=== PATIENT | male | born 1945 | race Caucasian/White ===

== ENCOUNTER 2017-07-07 04:24 | Inpatient (IN) | payer OTHER ==
[~2017-07-07] VITALS: Ht 177.8 cm; Wt 81.6 kg
--- NOTE | ~2017-07-07 | EC ---
PATIENT:NIYAH TIPTON DATE OF SERVICE: 07/07/17 SEX: M MEDICAL RECORD: [id number] DATE OF : 45 LOCATION:[facility] AGE OF PATIENT: 72 ADMISSION DATE: 07/07/17 REFERRING PHYSICIAN: INTERPRETING PHYSICIAN: KALE BOYD MD ECHOCARDIOGRAM REPORT ECHO CHARGES 4 ECHO COMPLETE CLINICAL DIAGNOSIS: AFIB ECHOCARDIOGRAPHIC MEASUREMENTS (adult normal given) AC root (d.<3.7cm) 5.0 cm LV Septum d (<1.2 cm> 1.9 cm Valve Excursion 2.5 cm LV Septum (systole) 2.0 cm Left Atria (s.<4.0cm> 3.5 cm LVPW d(<1.2cm) 2.0 cm RV (d.<2.3cm) 5.6 cm LVPW (sytole) 2.2 cm LV diastole(<5.6CM) 5.8 cm MV E-F(>70mm/sec) cm LV systole 4.0 cm LVOT Diameter 2.2 cm MV exc.(>10mm) 1.0 cm Est.ejection fraction (50-75%) % Pericardial Effusion N DOPPLER: LVIT cm/sec A 75.0 cm/sec E 34.0 cm/sec LA cm/sec RVSP 25 mmHg LVOT 111 cm/sec AOP1/2T 408 m/s Asc. Ao 176 cm/sec RVOT cm/sec RA cm/sec PA cm/sec AV Gradient Peak 12.37mmHg AV Mean 6.20 mmHg AV Area 2.3 cm MV Gradient Peak 5.36 mmHg MV Mean 2.36 mmHg MV Area cm COMMENTS: Precast Molder: Mary Ellen SANDERS Real Estate Broker Associate: 1 Dr. Boyd TAPE# PACA DATE OF SERVICE: 07/09/2017 PROCEDURE: Echocardiogram. FINDINGS: 1. Left ventricular chamber size is within normal limits. Left ventricular systolic function is normal. Overall ejection fraction estimated at 55%. 2. Left atrium is within normal limits at 3.5 cm. Right atrium and right ventricle chamber sizes are moderately dilated. 3. Valvular structures have normal structure and motion. ECHOCARDIOGRAM REPORT [id number] NIYAH TIPTON 4. Doppler interrogation reveals mild aortic insufficiency, mild mitral regurgitation, mild tricuspid regurgitation, no other valvular insufficiency or stenosis. Pulmonary systolic pressure is normal estimated at 25 mmHg. 5. No evidence of pericardial effusion or left ventricular thrombus. TRANSINT:[id number] Voice Confirmation ID: [id number] DOCUMENT ID: [id number] KALE BOYD MD at 1323 CC: [id number] DICTATION DATE: 07/09/17 1250 CORRECTIONAL PROGRAM OFFICER: 07/09/17 1426 DIS IN 07/12/17 [place] [id number] [place] [id number]
--- NOTE | ~2017-07-07 | CN ---
PATIENT NAME:NIYAH TIPTON MEDICAL RECORD: [id number] : 45 LOCATION:[id number] ADMIT DATE: 07/07/17 ACCOUNT: [id number] CONSULTING PHYSICIAN: KALE BENSON MD REFERRING PHYSICIAN: ALEXANDRE BARBA MD DATE OF CONSULTATION: 07/09/2017 CARDIOLOGY CONSULT ADMITTING DIAGNOSES: 1. Paroxysmal atrial fibrillation. 2. Abdominal aortic aneurysm. 3. Chronic obstructive pulmonary disease. 4. Gastrointestinal bleed. 5. Hypertension. 6. Shortness of breath -- dyspnea on exertion. HISTORY OF PRESENT ILLNESS: This is a gentleman who has a history of atrial fibrillation, for which he is on nothing, was admitted with a GI bleed, COPD exacerbation, had an episode of atrial fibrillation with heart rates in the 160s. He is now in sinus rhythm at 90. For blood pressure, he is on lisinopril. PHYSICAL EXAMINATION: GENERAL APPEARANCE: Well-nourished, well-developed, appears stated age. Level of distress, comfortable. PSYCHIATRIC: Mental status, alert, normal affect. Orientation, oriented to time, place and person. EYES: Lids and conjunctiva, noninjected. No discharge, no pallor. ENT: Lips, teeth, gums, normal dentition. Oropharynx, no cyanosis, no pallor. NECK: Carotid arteries, bilateral normal upstroke, no bruits, no thrills. JUGULAR VEINS: No jugular venous pressure or distention. CERVICAL LYMPH NODES: Nontender, nonenlarged. THYROID: Not enlarged. Nontender. No nodules. LUNGS: Respiratory effort, unlabored. CHEST: Normal curvature. No thoracic deformity. No chest wall tenderness. Percussion, resonant. Auscultation, clear. No wheezes, no rales, no rhonchi. CARDIOVASCULAR: Precordial exam, nondisplaced. No heaves or pericardial thrills. Rate and rhythm, regular. Heart sounds, normal S1, normal S2. No S3, no gallop, no rub. Systolic murmur, not heard. Diastolic murmur, not heard. EXTREMITIES: No cyanosis, no edema. Peripheral pulses, full and equal in all extremities, except as noted. No bruits appreciated. ABDOMEN: Soft, nondistended. Normal aorta. No bruit. Nontender. No masses. Liver, nontender, no hepatomegaly. Spleen, nontender, no splenomegaly. MUSCULOSKELETAL: No joint tenderness. No joint swelling. No erythema. NEUROLOGICAL: Normal gait, normal strength, normal tone. SKIN: Warm and dry. REVIEW OF SYSTEMS: The patient reports easy bruising but reports no swollen glands. The patient reports no fever, no night sweats, no significant weight gain, no significant weight loss. No significant exercise tolerance. The patient reports no dry eyes, no irritation, no vision change. Patient reports no difficulty hearing and no ear pain. Patient reports no frequent nose bleeds or nose and sinus problems. Patient reports on arm pain on exertion. No shortness of breath while lying down. No history of heart murmur. Patient CONSULT REPORT [id number] NIYHA TIPTON reports no cough, no wheezing or coughing up blood. Patient reports no abdominal pain, no vomiting. Normal appetite. No diarrhea and not vomiting blood. No nausea and no constipation. Patient reports no incontinence. No difficulty urinating. No hematuria. No increased frequency. Patient reports no muscle aches. No weakness, no arthralgias, no back pain. No swelling of the extremities. Patient reports no abnormal mole, no jaundice, no rashes. Reports no loss of consciousness. No weakness and no numbness. No seizures, dizziness, or headaches. The patient reports no depression, no sleep disturbance, feeling safe in a relationship and no alcohol abuse. Patient reports on fatigue. Reports no runny nose or sinus pressure. No itching, no hives, and no frequent sneezing. OVERALL IMPRESSION: Episodes of atrial fibrillation. At this time, we will start sotalol 80 mg b.i.d., restart his lisinopril and amlodipine for blood pressure, hopefully this will avert any further episodes of atrial fibrillation. We will get an echocardiogram. Otherwise, no other cardiac workup or treatment is necessary at this time. TRANSINT:[id number] Voice Confirmation ID: [id number] DOCUMENT ID: [id number] KALE BENSON MD at 1323 CC: [id number] DICTATION DATE: 07/09/17 1129 SUPERVISOR GATE SERVICES: 07/09/17 1316 DIS IN 07/12/17 [place] [address]
[2017-07-07 04:45] LABS: BASOPHILS 0.4 % (0-2); EOSINOPHILS 3.8 % (0-7); HEMATOCRIT 32.1 % (42.0-54.0); HEMOGLOBIN 10.6 g/dL (13.5-17.5); IMMATURE GRANULOCYTES 0.4 % (0-5); LYMPHOCYTES 17.6 % (15-50); MCH 30.7 pg (26.0-34.0); MEAN PLATELET VOLUME 9.1 fL (7.4-10.4); MONOCYTES 10.7 % (2-11); NEUTROPHILS 67.1 % (40-80); PLATELET COUNT 192 10x3/uL (130-400); RBC 3.45 10x6/uL (4.20-6.10); RDW 12.9 % (11.5-14.5); WBC 7.5 10x3/uL (4.8-10.8)
[2017-07-07 05:05] LABS: APTT 34.5 SECONDS (22.8-39.4); INR 0.96 (0.85-1.17); PROTIME 12.4 SECONDS (11.6-15.0)
[2017-07-07 05:08] LABS: ALBUMIN 3.2 g/dL (3.4-5.0); ALKALINE PHOSPHATASE 81 U/L (46-116); ALT (SGPT) 20 U/L (10-68); BILIRUBIN - TOTAL 0.29 mg/dL (0.2-1.3); CALC OSMOLALITY 269 mosm/kg (275-300); CALCIUM 8.5 mg/dL (8.5-10.1); CARBON DIOXIDE 31.2 mmol/L (21.0-32.0); CHLORIDE - SERUM 96 mmol/L (98-107); CREATININE - SERUM 1.1 mg/dL (0.6-1.3); GLUCOSE 112 mg/dL (74-106); POTASSIUM - SERUM 4.3 mmol/L (3.5-5.1); PROTEIN - SERUM 6.1 g/dL (6.4-8.2); SODIUM 133 mmol/L (136-145); UREA NITROGEN 22 mg/dL (7-18); eGFR NON AFRICAN AMERICAN 70 mL/min (90-120)
[2017-07-07 05:20] LABS: CKMB 1.2 U/L (0.0-3.6); CREATINE KINASE 54 UL (21-232); PRO BNP 207 pg/mL (0-125)
[2017-07-07 05:25] LABS: TROPONIN-I < 0.017 ng/mL (0.000-0.060)
[2017-07-07 08:03] LABS: HEMATOCRIT 29.1 % (42.0-54.0); HEMOGLOBIN 9.7 g/dL (13.5-17.5)
[2017-07-07 14:07] LABS: HEMATOCRIT 33.1 % (42.0-54.0); HEMOGLOBIN 10.9 g/dL (13.5-17.5)
[2017-07-07 18:55] LABS: CREATINE KINASE 47 UL (21-232)
[2017-07-07 18:57] LABS: TROPONIN-I < 0.017 ng/mL (0.000-0.060)
[2017-07-07 20:11] LABS: HEMATOCRIT 30.6 % (42.0-54.0); HEMOGLOBIN 10.3 g/dL (13.5-17.5)
[2017-07-07 21:01] VITALS: BP 114/73; BMI 25.8
[2017-07-07] MEDS ORDERED: PRINIVIL20 MG PO (21:10)
[2017-07-07 22:00] VITALS: BP 94/66
[2017-07-07 23:00] VITALS: BP 124/68
[2017-07-08] VITALS (23 sets, daily range): BP systolic 107–163; BP diastolic 47–87; Ht 177.8 cm; Wt 81.6 kg
[2017-07-08 00:23] LABS: HEMATOCRIT 28.8 % (42.0-54.0); HEMOGLOBIN 9.7 g/dL (13.5-17.5)
[2017-07-08 00:47] LABS: CKMB 1.4 U/L (0.0-3.6); CREATINE KINASE 45 UL (21-232)
[2017-07-08 00:48] LABS: TROPONIN-I < 0.017 ng/mL (0.000-0.060)
[2017-07-08 06:55] LABS: BASOPHILS 0 % (0-2); EOSINOPHILS 0 % (0-7); HEMATOCRIT 30.5 % (42.0-54.0); HEMOGLOBIN 10.1 g/dL (13.5-17.5); IMMATURE GRANULOCYTES 0.3 % (0-5); LYMPHOCYTES 11.8 % (15-50); MCH 30.5 pg (26.0-34.0); MCHC 33.1 g/dL (31.0-37.0); MCV 92.1 fL (80.0-100.0); MEAN PLATELET VOLUME 9.6 fL (7.4-10.4); MONOCYTES 6.1 % (2-11); NEUTROPHILS 81.8 % (40-80); PLATELET COUNT 218 10x3/uL (130-400); RBC 3.31 10x6/uL (4.20-6.10); RDW 12.7 % (11.5-14.5); WBC 6.7 10x3/uL (4.8-10.8)
[2017-07-08 07:41] LABS: ALKALINE PHOSPHATASE 70 U/L (46-116); ALT (SGPT) 19 U/L (10-68); BILIRUBIN - TOTAL 0.28 mg/dL (0.2-1.3); CALCIUM 8.3 mg/dL (8.5-10.1); CARBON DIOXIDE 27.6 mmol/L (21.0-32.0); CHLORIDE - SERUM 96 mmol/L (98-107); CKMB 1.4 U/L (0.0-3.6); CREATINE KINASE 44 UL (21-232); GLUCOSE 159 mg/dL (74-106); POTASSIUM - SERUM 4.1 mmol/L (3.5-5.1); PROTEIN - SERUM 5.9 g/dL (6.4-8.2); SODIUM 130 mmol/L (136-145)
[2017-07-08 07:43] LABS: CALC OSMOLALITY 264 mosm/kg (275-300); CREATININE - SERUM 0.8 mg/dL (0.6-1.3); TROPONIN-I < 0.017 ng/mL (0.000-0.060); UREA NITROGEN 15 mg/dL (7-18); eGFR NON AFRICAN AMERICAN > 90 mL/min (90-120)
[2017-07-08] MEDS ORDERED: NORVASC5 MG PO (10:00)
[2017-07-08] MEDS ORDERED: MUCUS RELIEF400 MG PO (10:02)
[2017-07-08] MEDS ORDERED: ALBUTEROL0.63 MG/3 INH (10:10)
[2017-07-08] MEDS ORDERED: PROVENTIL HFA6.7 GM INH (10:14)
[2017-07-08] MEDS ORDERED: SPIRIVA18 MCG INH (10:17)
[2017-07-08 14:53] LABS: HEMATOCRIT 29.3 % (42.0-54.0); HEMOGLOBIN 9.9 g/dL (13.5-17.5)
[2017-07-08 19:34] LABS: HEMATOCRIT 30.4 % (42.0-54.0); HEMOGLOBIN 10.1 g/dL (13.5-17.5)
[2017-07-09] VITALS (8 sets, daily range): BP systolic 94–179; BP diastolic 45–89
[2017-07-09 05:23] LABS: BASOPHILS 0 % (0-2); EOSINOPHILS 0 % (0-7); HEMATOCRIT 32.6 % (42.0-54.0); HEMOGLOBIN 10.7 g/dL (13.5-17.5); IMMATURE GRANULOCYTES 0.4 % (0-5); LYMPHOCYTES 6.4 % (15-50); MCH 30.7 pg (26.0-34.0); MCHC 32.8 g/dL (31.0-37.0); MCV 93.7 fL (80.0-100.0); MEAN PLATELET VOLUME 9.9 fL (7.4-10.4); MONOCYTES 7.6 % (2-11); NEUTROPHILS 85.6 % (40-80); PLATELET COUNT 239 10x3/uL (130-400); RBC 3.48 10x6/uL (4.20-6.10); RDW 12.9 % (11.5-14.5)
[2017-07-09 05:30] LABS: WBC 12.3 10x3/uL (4.8-10.8)
[2017-07-09 05:49] LABS: ALBUMIN 3.5 g/dL (3.4-5.0); ALKALINE PHOSPHATASE 82 U/L (46-116); ALT (SGPT) 21 U/L (10-68); CALC OSMOLALITY 283 mosm/kg (275-300); CALCIUM 8.6 mg/dL (8.5-10.1); CARBON DIOXIDE 30.5 mmol/L (21.0-32.0); CHLORIDE - SERUM 99 mmol/L (98-107); CREATININE - SERUM 0.9 mg/dL (0.6-1.3); GLUCOSE 137 mg/dL (74-106); POTASSIUM - SERUM 3.8 mmol/L (3.5-5.1); PROTEIN - SERUM 6.2 g/dL (6.4-8.2); SODIUM 140 mmol/L (136-145); eGFR NON AFRICAN AMERICAN 88 mL/min (90-120)
[2017-07-09 05:53] LABS: UREA NITROGEN 21 mg/dL (7-18)
[2017-07-09] MEDS ORDERED: TOPROL XL100 MG PO (08:40)
[2017-07-09] MEDS ORDERED: K-TAB10 MEQ PO (08:42)
[2017-07-09] MEDS ORDERED: LASIX40 MG PO (08:44)
[2017-07-09 16:04] LABS: ANION GAP 7.6 mmol/L (8-16); CALCIUM 8.3 mg/dL (8.5-10.1); CARBON DIOXIDE 33.2 mmol/L (21.0-32.0); CREATININE - SERUM 1.1 mg/dL (0.6-1.3); MAGNESIUM - SERUM 2.3 mg/dL (1.8-2.4); PHOSPHOROUS 3.9 mg/dL (2.5-4.9); THYROID STIMULATING HORMONE 1.49 uIU/mL (0.36-3.74)
[2017-07-09 16:12] LABS: POTASSIUM - SERUM 4.8 mmol/L (3.5-5.1)
[2017-07-10] VITALS (15 sets, daily range): BP systolic 94–163; BP diastolic 45–75
[2017-07-10 03:55] LABS: BASOPHILS 0 % (0-2); EOSINOPHILS 0 % (0-7); IMMATURE GRANULOCYTES 0.3 % (0-5); LYMPHOCYTES 8.6 % (15-50); MCH 30.3 pg (26.0-34.0); MCHC 32.3 g/dL (31.0-37.0); MCV 93.9 fL (80.0-100.0); MEAN PLATELET VOLUME 9.6 fL (7.4-10.4); MONOCYTES 6.3 % (2-11); NEUTROPHILS 84.8 % (40-80); PLATELET COUNT 235 10x3/uL (130-400); RDW 12.8 % (11.5-14.5)
[2017-07-10 04:15] LABS: ALBUMIN 3.2 g/dL (3.4-5.0); ALKALINE PHOSPHATASE 74 U/L (46-116); ALT (SGPT) 22 U/L (10-68); CALC OSMOLALITY 277 mosm/kg (275-300); CALCIUM 8.3 mg/dL (8.5-10.1); CARBON DIOXIDE 34.5 mmol/L (21.0-32.0); CHLORIDE - SERUM 99 mmol/L (98-107); GLUCOSE 137 mg/dL (74-106); POTASSIUM - SERUM 4.4 mmol/L (3.5-5.1); PROTEIN - SERUM 6.1 g/dL (6.4-8.2); SODIUM 136 mmol/L (136-145); UREA NITROGEN 25 mg/dL (7-18)
[2017-07-10 04:17] LABS: CREATININE - SERUM 0.8 mg/dL (0.6-1.3); eGFR NON AFRICAN AMERICAN > 90 mL/min (90-120)
[2017-07-11] VITALS: BP 100/55
[2017-07-11 04:00] VITALS: BP 99/57
[2017-07-11 04:58] LABS: BASOPHILS 0.1 % (0-2); EOSINOPHILS 1.9 % (0-7); HEMATOCRIT 29.4 % (42.0-54.0); HEMOGLOBIN 9.5 g/dL (13.5-17.5); IMMATURE GRANULOCYTES 0.8 % (0-5); LYMPHOCYTES 21.5 % (15-50); MCH 30.2 pg (26.0-34.0); MCHC 32.3 g/dL (31.0-37.0); MCV 93.3 fL (80.0-100.0); MEAN PLATELET VOLUME 9.8 fL (7.4-10.4); MONOCYTES 10.6 % (2-11); NEUTROPHILS 65.1 % (40-80); PLATELET COUNT 215 10x3/uL (130-400); RBC 3.15 10x6/uL (4.20-6.10)
[2017-07-11 05:02] LABS: WBC 7.9 10x3/uL (4.8-10.8)
[2017-07-11 05:30] LABS: ALBUMIN 2.6 g/dL (3.4-5.0); ALKALINE PHOSPHATASE 65 U/L (46-116); ALT (SGPT) 21 U/L (10-68); BILIRUBIN - TOTAL 0.23 mg/dL (0.2-1.3); CALC OSMOLALITY 274 mosm/kg (275-300); CALCIUM 8.2 mg/dL (8.5-10.1); CARBON DIOXIDE 32.9 mmol/L (21.0-32.0); CHLORIDE - SERUM 98 mmol/L (98-107); CREATININE - SERUM 0.8 mg/dL (0.6-1.3); GLUCOSE 108 mg/dL (74-106); POTASSIUM - SERUM 3.9 mmol/L (3.5-5.1); PROTEIN - SERUM 5.1 g/dL (6.4-8.2); SODIUM 135 mmol/L (136-145); UREA NITROGEN 23 mg/dL (7-18); eGFR NON AFRICAN AMERICAN > 90 mL/min (90-120)
[2017-07-11 09:56] VITALS: BP 138/68
[2017-07-11 12:38] VITALS: BP 140/64
[2017-07-11 16:45] VITALS: BP 138/63
[2017-07-11 20:00] VITALS: BP 107/60
[2017-07-12] VITALS: BP 115/55
[2017-07-12 06:14] LABS: BASOPHILS 0.1 % (0-2); EOSINOPHILS 5.3 % (0-7); HEMATOCRIT 29.3 % (42.0-54.0); HEMOGLOBIN 9.4 g/dL (13.5-17.5); IMMATURE GRANULOCYTES 0.4 % (0-5); LYMPHOCYTES 20.6 % (15-50); MCH 29.9 pg (26.0-34.0); MCHC 32.1 g/dL (31.0-37.0); MCV 93.3 fL (80.0-100.0); MONOCYTES 8.6 % (2-11); PLATELET COUNT 221 10x3/uL (130-400); RBC 3.14 10x6/uL (4.20-6.10); RDW 12.9 % (11.5-14.5)
[2017-07-12 06:50] LABS: ALBUMIN 2.5 g/dL (3.4-5.0); ALKALINE PHOSPHATASE 63 U/L (46-116); ALT (SGPT) 19 U/L (10-68); BILIRUBIN - TOTAL 0.33 mg/dL (0.2-1.3); CALC OSMOLALITY 275 mosm/kg (275-300); CALCIUM 8.2 mg/dL (8.5-10.1); CARBON DIOXIDE 32.8 mmol/L (21.0-32.0); CHLORIDE - SERUM 99 mmol/L (98-107); CREATININE - SERUM 0.7 mg/dL (0.6-1.3); GLUCOSE 103 mg/dL (74-106); POTASSIUM - SERUM 3.9 mmol/L (3.5-5.1); PROTEIN - SERUM 5.1 g/dL (6.4-8.2); SODIUM 137 mmol/L (136-145); UREA NITROGEN 19 mg/dL (7-18); eGFR NON AFRICAN AMERICAN > 90 mL/min (90-120)
[2017-07-12 08:44] VITALS: BP 119/77
[2017-07-12] MEDS ORDERED: BETAPACE 80 MG80 MG PO (11:13)
[2017-07-12] MEDS ORDERED: FERROUS SULFAT325 MG PO (11:13)
[2017-07-12] MEDS ORDERED: CARAFATE1 G/10 ML PO (11:13)
[2017-07-12] MEDS ORDERED: PROTONIX40 MG PO (11:13)
[2017-07-12] MEDS ORDERED: CARAFATE1 G PO (12:39)
== END 2017-07-12 14:55 | disposition home or self-care (01) | DRG 378 ==
LOC: D.ER 04:24 → D.ICU 17:36 → D.MS 07-10 16:05
PROVIDERS: Emergency Medicine; Family Medicine; Internal Medicine Gastroenterology; Internal Medicine Pulmonary Disease
PROC: 0DB78ZX Excision of Stomach, Pylorus, Via Natural or Artificial Opening Endoscopic, Diagnostic (ICD-10-PCS; 2017-07-08)
PROC: 0DB98ZX Excision of Duodenum, Via Natural or Artificial Opening Endoscopic, Diagnostic (ICD-10-PCS; principal; 2017-07-08 14:00)
DX: K25.4 Chronic or unspecified gastric ulcer with hemorrhage (principal); D62 Acute posthemorrhagic anemia; J44.1 Chronic obstructive pulmonary disease with (acute) exacerbation; I50.32 Chronic diastolic (congestive) heart failure; K29.80 Duodenitis without bleeding; K29.00 Acute gastritis without bleeding; K57.10 Diverticulosis of small intestine without perforation or abscess without bleeding; I11.0 Hypertensive heart disease with heart failure; I71.4 Abdominal aortic aneurysm, without rupture; F41.8 Other specified anxiety disorders